=== PATIENT | female | born 1980 | race Caucasian/White ===

== ENCOUNTER 2021-04-28 07:46 | Emergency (ER) | payer BC ==
[2021-04-28 08:02] VITALS: TEMP 97.6
[2021-04-28] MEDS ORDERED: KETOROLAC 15 MG/ML 1 ML VIAL IVP STA (08:16)
[2021-04-28] MEDS ORDERED: ONDANSETRON 4 MG/2 ML VIAL IVP STA (08:16)
[2021-04-28] MEDS ORDERED: SODIUM CHLORIDE 0.9% 1,000 ML IV STA ×2 (08:16)
--- NOTE | 2021-04-28 08:27 | ED ---
Abdominal Pain HPI - General Chief Complaint: Abdominal Pain Stated Complaint: Side Pain Time Seen by Provider: 04/28/21 08:09 Source: patient, family, RN notes reviewed Mode of arrival: ambulatory Limitations: no limitations - History of Present Illness Initial Comments: 40-year-old female with a benign past medical history was had the sudden onset at 6:30 this morning of severe left-sided flank pain. States it's 10/10 she had nausea vomiting diarrhea last 2 bowel movements have been normal. She's never pain like this before she states that sharp in nature. They get worse with movement or deep breathing nothing makes it better nothing makes it worse. She denies any hematuria no history kidney stones. No other complaints or modifying factors MD Complaint: flank pain - Related Data Home Medications Medication Instructions Recorded Confirmed Albuterol Inhaler [Ventolin Hfa 1 - 2 puff INHALATION RT-QID PRN 04/28/21 04/28/21 Inhaler] Cetirizine HCl [Zyrtec] 10 mg PO DAILY 04/28/21 04/28/21 Propranolol HCl [Inderal Xl] 80 mg PO DAILY 04/28/21 04/28/21 Previous Rx's Medication Instructions Recorded Ketorolac [Toradol] 10 mg PO Q6HR #20 tab 04/28/21 Tamsulosin [Flomax] 0.4 mg PO DAILY #7 cap 04/28/21 Allergies Allergy/AdvReac Type Severity Reaction Status Date / Time No Known Allergies Allergy Verified 04/28/21 09:37 Review of Systems ROS Statement: Those systems with pertinent positive or pertinent negative responses have been documented in the HPI. ROS Other: All systems not noted in ROS Statement are negative. Past Medical History Past Medical History: No Reported History History of Any Multi-Drug Resistant Organisms: None Reported Past Surgical History: No Surgical Hx Reported Past Psychological History: No Psychological Hx Reported Smoking Status: Never smoker Past Alcohol Use History: None Reported Past Drug Use History: Marijuana General Exam - General Exam Comments Initial Comments: This is a well-developed well-nourished awake alert oriented 3 female Limitations: no limitations General appearance: alert, anxious, in distress Head exam: Present: atraumatic, normocephalic, normal inspection Eye exam: Present: normal appearance, PERRL, EOMI. Absent: scleral icterus, conjunctival injection, periorbital swelling ENT exam: Present: normal exam, mucous membranes moist Neck exam: Present: normal inspection, full ROM, other (No stridor JVD or bruits). Absent: tenderness, meningismus, lymphadenopathy Respiratory exam: Present: normal lung sounds bilaterally. Absent: respiratory distress, wheezes, rales, rhonchi, stridor Cardiovascular Exam: Present: normal rhythm, bradycardia, normal heart sounds. Absent: systolic murmur, diastolic murmur, rubs, gallop, clicks GI/Abdominal exam: Present: soft, tenderness (Mild left flank tenderness palpation), normal bowel sounds. Absent: distended, guarding, rebound, rigid, bruit, pulsatile mass Rectal exam: Present: deferred Extremities exam: Present: normal inspection, full ROM, normal capillary refill. Absent: tenderness, pedal edema, joint swelling, calf tenderness Back exam: Present: normal inspection, full ROM. Absent: tenderness, CVA tenderness (R), CVA tenderness (L) Neurological exam: Present: alert, oriented X3, CN II-XII intact Psychiatric exam: Present: normal affect, anxious Skin exam: Present: warm, dry, intact, normal color. Absent: rash Course Vital Signs 04/28/21 04/28/21 04/28/21 07:56 09:01 10:00 Temperature 97.6 F Pulse Rate 43 L Respiratory 20 18 18 Rate Blood Pressure 140/84 O2 Sat by Pulse 100 Oximetry - Reevaluation(s) Reevaluation #1: 04/28/21 09:09 Reevaluation patient finds that she is almost pain-free at this time after Toradol was given. Medical Decision Making - Medical Decision Making I did reevaluate the patient multiple occasions she is pain-free and continues to be so. Consistent with a kidney stone passage. She'll be placed on appropriate medication we did have a long discussion regarding the findings she will be discharged with follow-up with her doctor. - Lab Data Result diagrams: 04/28/21 09:40 04/28/21 09:40 Lab Results 04/28/21 04/28/21 04/28/21 Range/Units 09:40 09:40 09:40 WBC 11.0 H (3.8-10.6) k/uL RBC 4.20 (3.80-5.40) m/uL Hgb 12.4 (11.4-16.0) gm/dL Hct 37.0 (34.0-46.0) % MCV 88.0 (80.0-100.0) fL MCH 29.6 (25.0-35.0) pg MCHC 33.6 (31.0-37.0) g/dL RDW 13.2 (11.5-15.5) % Plt Count 306 (150-450) k/uL MPV 7.1 Neutrophils % 82 % Lymphocytes % 13 % Monocytes % 3 % Eosinophils % 1 % Basophils % 0 % Neutrophils # 9.0 H (1.3-7.7) k/uL Lymphocytes # 1.4 (1.0-4.8) k/uL Monocytes # 0.3 (0-1.0) k/uL Eosinophils # 0.1 (0-0.7) k/uL Basophils # 0.0 (0-0.2) k/uL Sodium 137 (137-145) mmol/L Potassium 3.8 (3.5-5.1) mmol/L Chloride 107 (98-107) mmol/L Carbon Dioxide 21 L (22-30) mmol/L Anion Gap 9 mmol/L BUN 11 (7-17) mg/dL Creatinine 0.72 (0.52-1.04) mg/dL Est GFR (CKD-EPI)AfAm >90 (>60 ml/min/1.73 sqM) Est GFR (CKD-EPI)NonAf >90 (>60 ml/min/1.73 sqM) Glucose 114 H (74-99) mg/dL Plasma Lactic Acid Alonzo 1.8 (0.7-2.0) mmol/L Calcium 8.9 (8.4-10.2) mg/dL Total Bilirubin 1.0 (0.2-1.3) mg/dL AST 19 (14-36) U/L ALT 16 (4-34) U/L Alkaline Phosphatase 69 (38-126) U/L Creatine Kinase 51 (30-135) U/L Total Protein 6.6 (6.3-8.2) g/dL Albumin 3.8 (3.5-5.0) g/dL Amylase 58 (30-110) U/L Lipase 80 (23-300) U/L - Radiology Data Radiology results: report reviewed (Imaging reviewed evidence of a 2-3 mm stone at the UVJ or in the bladder minimal hydronephrosis hydroureter please see c omplete report), image reviewed Disposition Clinical Impression: Left renal stone, Renal colic on left side Disposition: HOME SELF-CARE Condition: Good Instructions (If sedation given, give patient instructions): Flank Pain (ED), How to Strain Your Urine (ED), Renal Colic (ED), Kidney Stones (ED) Prescriptions: Tamsulosin [Flomax] 0.4 mg PO DAILY #7 cap Ketorolac [Toradol] 10 mg PO Q6HR #20 tab Is patient prescribed a controlled substance at d/c from ED?: No Referrals: Loni Alfredo DO [Primary Care Provider] - 1-2 days
--- NOTE | 2021-04-28 09:50 | CT ---
EXAMINATION TYPE: CT abdomen pelvis wo con DATE OF EXAM: 04/28/2021 HISTORY: Left Flank pain, kidney stone suspected CT DLP: 439.9 mGycm. Automated Exposure Control for Dose Reduction was Utilized. TECHNIQUE: CT scan of the abdomen and pelvis is performed without oral or IV contrast. COMPARISON: NONE FINDINGS: Within the limitations of a non-contrast study, the following observations are made. LUNG BASES: Mild bibasilar linear scarring and/or atelectasis. LIVER/GB: No significant abnormality is appreciated. PANCREAS: No significant abnormality is seen. SPLEEN: No significant abnormality is seen. ADRENALS: No significant abnormality is seen. KIDNEYS: No renal calculi identified bilaterally. Mild to minimal left-sided pyelocaliectasis without significant hydroureter or obstructing ureteral calculus clearly seen. There is occasional calcified right-sided pelvic phlebolith along with 2 to 3 mm calcific density axial image 119 could reflect di stal calculus at UVJ or possibly within the lumen of bladder. BOWEL: Low lying cecum into right pelvis. Unusual posterior positioning terminal ileum. Prominent rig ht-sided diverticulum axial image 86. Additional scattered colonic diverticula. No CT evidence for ac [place] diverticulitis. GENITAL ORGANS: Anteverted uterus. Prominent lower uterine segment or cervix, correlate clinically. A symmetric prominent left ovary with 2.3 cm low dense lesion 29 favoring prominent follicle or simple small ovarian cyst. LYMPH NODES: No greater than 1cm abdominal or pelvic lymph nodes are appreciated. OSSEOUS STRUCTURES: Mild disc space narrowing lumbosacral junction. OTHER: No significant additional abnormality is seen. IMPRESSION: 1. Asymmetric mild to minimal left-sided hydronephrosis. Possible 2 to 3 mm intraluminal calculus in dependent bladder, suspect recently passed stone.
[2021-04-28 09:52] LABS: Basophils % (A) 0 %; Eosinophils # (A) 0.1 k/uL (0-0.7); Eosinophils % (A) 1 %; HGB 12.4 gm/dL (11.4-16.0); Lymphocytes # (A) 1.4 k/uL (1.0-4.8); Lymphocytes % (A) 13 %; MCH 29.6 pg (25.0-35.0); MCHC 33.6 g/dL (31.0-37.0); Mean Platelet Volume 7.1; Monocytes # (A) 0.3 k/uL (0-1.0); Monocytes % (A) 3 %; Neutrophils % (A) 82 %; Platelet Count 306 k/uL (150-450); RDW 13.2 % (11.5-15.5)
[2021-04-28 10:08] LABS: ALT 16 U/L (4-34); AST 19 U/L (14-36); African American GFR (CKD) >90 (>60 ml/min/1.73 sqM); Albumin 3.8 g/dL (3.5-5.0); Alkaline Phosphatase 69 U/L (38-126); Amylase 58 U/L (30-110); Anion Gap 9 mmol/L; Blood Urea Nitrogen 11 mg/dL (7-17); Calcium 8.9 mg/dL (8.4-10.2); Carbon Dioxide 21 mmol/L (22-30); Chloride 107 mmol/L (98-107); Creatine Kinase 51 U/L (30-135); Glucose 114 mg/dL (74-99); Lipase 80 U/L (23-300); Non-African American GFR(CKD) >90 (>60 ml/min/1.73 sqM); Potassium 3.8 mmol/L (3.5-5.1); Sodium 137 mmol/L (137-145); Total Protein 6.6 g/dL (6.3-8.2)
[2021-04-28 10:29] VITALS: RESP 18
[2021-04-28] MEDS ORDERED: TAMSULOSIN 0.4 MG CAP.ER.24H PO STA (10:31)
[2021-04-28 11:05] VITALS: BP 108/83; PULSE 60
[2021-04-28 11:32] LABS: Appearance,Urine Clear (Clear); Bacteria,Urine Rare /hpf; Bilirubin,Urine Negative (Negative); Blood,Urine Large (Negative); Color,Urine Yellow; Glucose,Urine (UA) Negative (Negative); Hyaline Casts,Urine 8 /lpf (0-2); Ketones,Urine Negative (Negative); Leukocyte Esterase,Urine Negative (Negative); Mucus,Urine Moderate /hpf; Nitrite,Urine Negative (Negative); PH, Urine 5.5 (5.0-8.0); Protein,Urine Negative (Negative); RBC,Urine >182 /hpf (0-5); Specific Gravity,Urine 1.011 (1.001-1.035); Squamous Epithelial Cell,Urine <1 /hpf (0-4); Urobilinogen,Urine <2.0 mg/dL (<2.0); WBC,Urine 1 /hpf (0-5)
== END 2021-04-28 11:05 | disposition home or self-care (01) ==
LOC: EC 07:46
DX: N20.0 Calculus of kidney (principal); F12.90 Cannabis use, unspecified, uncomplicated
CPT/HCPCS: 36415; 80053; 82150; 82550; 83605; 83690; 84484; 85025; 81001; 81025; 74176; 99284; 96374; 96375; 96361; J2405; J1885

== ENCOUNTER 2024-02-13 23:19 | Emergency (ER) | payer BC ==
--- NOTE | 2024-02-13 23:37 | ED ---
Abdominal Pain HPI - General Source: patient, RN notes reviewed Mode of arrival: ambulatory Limitations: no limitations <Lizzy Escobar - Last Filed: 02/13/24 23:36> <Dereck Law - Last Filed: 02/14/24 04:10> - General Stated Complaint: Abd pain Time Seen by Provider: 02/13/24 23:36 - History of Present Illness Initial Comments: Quick note: 43-year-old female presented to the ER with a chief complaint of suprapubic abdominal pain. Patient has a past medical history significant of kidney stones. She reports associated diarrhea, nausea and chills. Denies any urinary complaints. Denies any fevers. (Lizzy Escobar) 43-year-old female presented to ED with chief complaint of abdominal pain. Patient states onset yesterday. Reports at onset had 2 episodes of diarrhea. However has not had any more today. Does note some associated nausea and chills. Denies pain with urination, hematuria, urgency, frequency. Denies radiation of the pain. No flank pain. No fever. No chest pain or shortness of breath. No other complaints at this time. (Dereck Law) - Related Data Home Medications Medication Instructions Recorded Confirmed Albuterol Inhaler [Ventolin Hfa 1 - 2 puff INHALATION RT-QID PRN 04/28/21 04/28/21 Inhaler] Cetirizine HCl [Zyrtec] 10 mg PO DAILY 04/28/21 04/28/21 Propranolol HCl [Inderal Xl] 80 mg PO DAILY 04/28/21 04/28/21 Previous Rx's Medication Instructions Recorded Ketorolac [Toradol] 10 mg PO Q6HR #20 tab 04/28/21 Tamsulosin [Flomax] 0.4 mg PO DAILY #7 cap 04/28/21 Cephalexin [Keflex] 500 mg PO Q6HR #20 cap 02/14/24 Phenazopyridine [Pyridium] 200 mg PO TID #6 tablet 02/14/24 Allergies Allergy/AdvReac Type Severity Reaction Status Date / Time No Known Allergies Allergy Verified 02/13/24 23:44 Review of Systems ROS Other: All systems not noted in ROS Statement are negative. <Lizzy Escobar - Last Filed: 02/13/24 23:36> ROS Other: All systems not noted in ROS Statement are negative. <Dereck Law - Last Filed: 02/14/24 04:10> ROS Statement: Those systems with pertinent positive or pertinent negative responses have been documented in the HPI. Past Medical History Past Medical History: No Reported History History of Any Multi-Drug Resistant Organisms: None Reported Past Surgical History: No Surgical Hx Reported Past Psychological History: No Psychological Hx Reported Smoking Status: Never smoker Past Alcohol Use History: None Reported Past Drug Use History: Marijuana <Lizzy Escobar - Last Filed: 02/13/24 23:36> General Exam <Lizzy Escobar - Last Filed: 02/13/24 23:36> General appearance: alert, in no apparent distress Eye exam: Present: normal appearance Neck exam: Present: normal inspection Respiratory exam: Present: normal lung sounds bilaterally Cardiovascular Exam: Present: regular rate GI/Abdominal exam: Present: soft (Suprapubic tenderness to palpation. No rebound guarding or rigidity. No CVA tenderness to percussion bilaterally.) Neurological exam: Present: alert, oriented X3 Skin exam: Present: warm, dry <Dereck Law - Last Filed: 02/14/24 04:10> - General Exam Comments Initial Comments: Visual Physical Exam Vital signs reviewed General: Well-appearing, nontoxic, no acute distress. Head: Normocephalic, atraumatic Eyes: PERRLA, EOMI ENT: Airway patent Chest: Nonlabored breathing Skin: No visual rash, normal skin tone Neuro: Alert and oriented 3 Musculoskeletal: No gross abnormalities (Lizzy Escobar) Course Vital Signs 02/13/24 02/14/24 23:42 03:57 Temperature 97.9 F Pulse Rate 57 L 63 Respiratory 18 18 Rate Blood Pressure 91/59 108/69 O2 Sat by Pulse 97 96 Oximetry Medical Decision Making <Lizzy Escobar - Last Filed: 02/13/24 23:36> - Lab Data Result diagrams: 02/14/24 00:15 02/14/24 00:15 <Dereck Law - Last Filed: 02/14/24 04:10> - Medical Decision Making I performed the quick note portion of this chart. Electronically signed by Lizzy Escobar PA-C (Lizzy Escobar) Was pt. sent in by a medical professional or institution (, [facility], [facility] [facility], urgent care, hospital, or snf...) When possible be specific @ -No Did you speak to anyone other than the patient for history (EMS, parent, family, police, friend...)? What history was obtained from this source @ -No Did you review nursing and triage notes (agree or disagree)? Why? @ -I reviewed and agree with nursing and triage notes Were old charts reviewed (outside hosp., previous admission, EMS record, old EKG, old radiological studies, urgent care reports/EKG's, snf records)? Report findings @ -No old charts were reviewed Differential Diagnosis (chest pain, altered mental status, abdominal pain women, abdominal pain men, vaginal bleeding, weakness, fever, dyspnea, syncope, headache, dizziness, GI bleed, back pain, seizure, CVA, palpatations, mental health, musculoskeletal)? @ -Differential Abdominal Pain Women: Appendicitis, Cholecystitis, diverticulosis, ischemic bowel, pancreatitis, h epatitis, UTI, gastroenteritis, AAA, incarcerated hernia, bowel obstruction, constipation, inflammatory bowel, hepatitis, peptic ulcer disease, splenic infarction, perforated viscus, vulvitis, ovarian torsion, PID, kidney stone, placenta abruption, this is not meant to be an all-inclusive list EKG interpreted by me (3pts min.). @ -None X-rays interpreted by me (1pt min.). @ -None done CT interpreted by me (1pt min.). @ -None done U/S interpreted by me (1pt. min.). @ -None done What testing was considered but not performed or refused? (CT, X-rays, U/S, labs)? Why? @ -None What meds were considered but not given or refused? Why? @ -None Did you discuss the management of the patient with other professionals (professionals i.e. , [facility], [facility] [facility], lab, RT, psych nurse, social welfare administrator, account administrator, teacher, vessel traffic officer, gearcase assembler)? Give summary @ -No Was smoking cessation discussed for >3mins.? @ -No Was critical care preformed (if so, how long)? @ -No Were there social determinants of health that impacted care today? How? (Homelessness, low income, unemployed, alcoholism, drug addiction, transportation, low edu. Level, literacy, decrease access to med. care, [place] [facility], rehab)? @ -No Was there de-escalation of care discussed even if they declined (Discuss DNR or withdrawal of care, Hospice)? DNR status @ -No What co-morbidities impacted this encounter? (DM, HTN, Smoking, COPD, CAD, Cancer, CVA, ARF, Chemo, Hep., AIDS, mental health diagnosis, sleep apnea, morbid obesity)? @ -None Was patient admitted / discharged? Hospital course, mention meds given and route, prescriptions, significant lab abnormalities, going to OR and other pertinent info. @ -Discharge 43-year-old female presenting to the ED with complaints of suprapubic abdominal pain for 2 days with initial diarrhea however now resolved. Laboratory studies reviewed. CBC does show an elevated white blood cell count of 14.9, elevated neutrophils at 12.3. Chemistry panel largely unremarkable. Urine shows only 1 RBC, 1 white blood cell, with some contamination with 5 squamous epithelial cells however moderate bacteria. Symptoms likely viral in nature however patient symptomatic with suprapubic pain and moderate bacteria therefore will be treated for cystitis. Patient provided IV fluids and discharged home with prescription for Keflex and Azo. Advise close follow-up with her PCP. Discussed return precautions with patient and family who verbalized agreement. Undiagnosed new problem with uncertain prognosis? @ -No Drug Therapy requiring intensive monitoring for toxicity (Heparin, Nitro, Insulin, Cardizem)? @ -No Were any procedures done? @ -No Diagnosis/symptom? @ -Abdominal pain Acute, or Chronic, or Acute on Chronic? @ -Acute Uncomplicated (without systemic symptoms) or Complicated (systemic symptoms)? @ -Uncomplicated Side effects of treatment? @ -No Exacerbation, Progression, or Severe Exacerbation? @ -No Poses a threat to life or bodily function? How? (Chest pain, [place], [place], pneumonia, PE, COPD, DKA, ARF, appy, cholecystitis, CVA, Diverticulitis, Homicidal, Suicidal, threat to staff... and all critical care pts) @ -No (Dereck Law) - Lab Data Lab Results 02/14/24 02/14/24 02/14/24 Range/Units 00:15 00:15 00:15 WBC 14.9 H (3.8-10.6) k/uL RBC 4.75 (3.80-5.40) m/uL Hgb 13.5 (11.4-16.0) gm/dL Hct 42.3 (34.0-46.0) % MCV 89.2 (80.0-100.0) fL MCH 28.4 (25.0-35.0) pg MCHC 31.8 (31.0-37.0) g/dL RDW 13.1 (11.5-15.5) % Plt Count 316 (150-450) k/uL MPV 7.7 Neutrophils % 82 % Lymphocytes % 13 % Monocytes % 3 % Eosinophils % 1 % Basophils % 0 % Neutrophils # 12.3 H (1.3-7.7) k/uL Lymphocytes # 2.0 (1.0-4.8) k/uL Monocytes # 0.4 (0-1.0) k/uL Eosinophils # 0.1 (0-0.7) k/uL Basophils # 0.0 (0-0.2) k/uL Sodium 135 L (137-145) mmol/L Potassium 3.9 (3.5-5.1) mmol/L Chloride 104 (98-107) mmol/L Carbon Dioxide 20 L (22-30) mmol/L Anion Gap 11 mmol/L BUN 13 (7-17) mg/dL Creatinine 0.66 (0.52-1.04) mg/dL Est GFR (CKD-EPI)AfAm >90 (>60 ml/min/1.73 sqM) Est GFR (CKD-EPI)NonAf >90 (>60 ml/min/1.73 sqM) Glucose 145 H (74-99) mg/dL Plasma Lactic Acid Alonzo 1.4 (0.7-2.0) mmol/L Calcium 9.6 (8.4-10.2) mg/dL Total Bilirubin 1.5 H (0.2-1.3) mg/dL AST 20 (14-36) U/L ALT 16 (4-34) U/L Alkaline Phosphatase 70 (38-126) U/L Total Protein 7.8 (6.3-8.2) g/dL Albumin 4.8 (3.5-5.0) g/dL Amylase 71 (30-110) U/L Lipase 71 (23-300) U/L Urine Color Urine Appearance (Clear) Urine pH (5.0-8.0) Ur Specific [place] (1.001-1.035) Urine Protein (Negative) Urine Glucose (UA) (Negative) Urine Ketones (Negative) Urine Blood (Negative) Urine Nitrite (Negative) Urine Bilirubin (Negative) Urine Urobilinogen (<2.0) mg/dL Ur Leukocyte Esterase (Negative) Urine RBC (0-5) /hpf Urine WBC (0-5) /hpf Ur Squamous Epith Cells (0-4) /hpf Urine Bacteria (None) /hpf Hyaline Casts (0-2) /lpf Urine Mucus (None) /hpf 02/14/24 Range/Units 02:48 WBC (3.8-10.6) k/uL RBC (3.80-5.40) m/uL Hgb (11.4-16.0) gm/dL Hct (34.0-46.0) % MCV (80.0-100.0) fL MCH (25.0-35.0) pg MCHC (31.0-37.0) g/dL RDW (11.5-15.5) % Plt Count (150-450) k/uL MPV Neutrophils % % Lymphocytes % % Monocytes % % Eosinophils % % Basophils % % Neutrophils # (1.3-7.7) k/uL Lymphocytes # (1.0-4.8) k/uL Monocytes # (0-1.0) k/uL Eosinophils # (0-0.7) k/uL Basophils # (0-0.2) k/uL Sodium (137-145) mmol/L Potassium (3.5-5.1) mmol/L Chloride (98-107) mmol/L Carbon Dioxide (22-30) mmol/L Anion Gap mmol/L BUN (7-17) mg/dL Creatinine (0.52-1.04) mg/dL Est GFR (CKD-EPI)AfAm (>60 ml/min/1.73 sqM) Est GFR (CKD-EPI)NonAf (>60 ml/min/1.73 sqM) Glucose (74-99) mg/dL Plasma Lactic Acid [place]onzo (0.7-2.0) mmol/L Calcium (8.4-10.2) mg/dL Total Bilirubin (0.2-1.3) mg/dL AST (14-36) U/L ALT (4-34) U/L Alkaline Phosphatase (38-126) U/L Total Protein (6.3-8.2) g/dL Albumin (3.5-5.0) g/dL Amylase (30-110) U/L Lipase (23-300) U/L Urine Color Yellow Urine Appearance Cloudy H (Clear) Urine pH 6.0 (5.0-8.0) Ur Specific [place] 1.020 (1.001-1.035) Urine Protein Trace H (Negative) Urine Glucose (UA) Negative (Negative) Urine Ketones 2+ H (Negative) Urine Blood Negative (Negative) Urine Nitrite Negative (Negative) Urine Bilirubin Negative (Negative) Urine Urobilinogen <2.0 (<2.0) mg/dL Ur Leukocyte Esterase Negative (Negative) Urine RBC 1 (0-5) /hpf Urine WBC 1 (0-5) /hpf Ur Squamous Epith Cells 5 H (0-4) /hpf Urine Bacteria Moderate H (None) /hpf Hyaline Casts 1 (0-2) /lpf Urine Mucus Many H (None) /hpf Disposition <Lizzy Escobar - Last Filed: 02/13/24 23:36> Is patient prescribed a controlled substance at d/c from ED?: No Time of Disposition: 04:10 <Dereck Law - Last Filed: 02/14/24 04:10> Clinical Impression: Gastroenteritis, UTI (urinary tract infection) Disposition: HOME SELF-CARE Condition: Good Instructions (If sedation given, give patient instructions): Gastroenteritis (ED), Urinary Tract Infection in Women (ED) Prescriptions: Cephalexin [Keflex] 500 mg PO Q6HR #20 cap Phenazopyridine [Pyridium] 200 mg PO TID #6 tablet Referrals: Loni Alfredo DO [Primary Care Provider] - 1-2 days
[2024-02-13 23:44] VITALS: RESP 18; TEMP 97.9
[2024-02-14 00:55] LABS: Basophils % (A) 0 %; Eosinophils # (A) 0.1 k/uL (0-0.7); Eosinophils % (A) 1 %; HCT 42.3 % (34.0-46.0); HGB 13.5 gm/dL (11.4-16.0); Lymphocytes % (A) 13 %; MCH 28.4 pg (25.0-35.0); MCHC 31.8 g/dL (31.0-37.0); MCV 89.2 fL (80.0-100.0); Mean Platelet Volume 7.7; Monocytes # (A) 0.4 k/uL (0-1.0); Monocytes % (A) 3 %; Neutrophils # (A) 12.3 k/uL (1.3-7.7); Neutrophils % (A) 82 %; Platelet Count 316 k/uL (150-450); RBC 4.75 m/uL (3.80-5.40); RDW 13.1 % (11.5-15.5); WBC 14.9 k/uL (3.8-10.6)
[2024-02-14 01:08] LABS: ALT 16 U/L (4-34); AST 20 U/L (14-36); African American GFR (CKD) >90 (>60 ml/min/1.73 sqM); Albumin 4.8 g/dL (3.5-5.0); Alkaline Phosphatase 70 U/L (38-126); Amylase 71 U/L (30-110); Anion Gap 11 mmol/L; Blood Urea Nitrogen 13 mg/dL (7-17); Calcium 9.6 mg/dL (8.4-10.2); Carbon Dioxide 20 mmol/L (22-30); Chloride 104 mmol/L (98-107); Glucose 145 mg/dL (74-99); Lipase 71 U/L (23-300); Non-African American GFR(CKD) >90 (>60 ml/min/1.73 sqM); Potassium 3.9 mmol/L (3.5-5.1); Sodium 135 mmol/L (137-145); Total Bilirubin 1.5 mg/dL (0.2-1.3); Total Protein 7.8 g/dL (6.3-8.2)
[2024-02-14 03:28] LABS: Appearance,Urine Cloudy (Clear); Bacteria,Urine Moderate /hpf; Bilirubin,Urine Negative (Negative); Blood,Urine Negative (Negative); Color,Urine Yellow; Glucose,Urine (UA) Negative (Negative); Hyaline Casts,Urine 1 /lpf (0-2); Ketones,Urine 2+ (Negative); Leukocyte Esterase,Urine Negative (Negative); Mucus,Urine Many /hpf; Nitrite,Urine Negative (Negative); Protein,Urine Trace (Negative); RBC,Urine 1 /hpf (0-5); Squamous Epithelial Cell,Urine 5 /hpf (0-4); Urobilinogen,Urine <2.0 mg/dL (<2.0); WBC,Urine 1 /hpf (0-5)
[2024-02-14 03:58] VITALS: BP 108/69; PULSE 63
[2024-02-14] MEDS: SODIUM CHLORIDE 0.9% 1,000 ML IV STA (04:14)
[2024-02-14] MEDS: KETOROLAC 15 MG/ML 1 ML VIAL IVP STA (04:15)
[2024-02-14] MEDS: CEPHALEXIN 500MG STARTER PACK 4 CAP BTL PO STA (04:16)
[2024-02-14] MEDS: MORPHINE SULFATE 2 MG/ML SYRINGE IVP STA (04:40)
[2024-02-14] MEDS: PHENAZOPYRIDINE 200 MG TAB PO STA (05:09)
== END 2024-02-14 05:15 | disposition home or self-care (01) ==
LOC: EC 23:19
DX: K52.9 Noninfective gastroenteritis and colitis, unspecified (principal); N39.0 Urinary tract infection, site not specified
CPT/HCPCS: 36415; 80053; 82150; 83605; 83690; 85025; 81001; 99284; 96374; 96375; 96361; J2270; J1885